=== PATIENT | female | born 2005 | race Caucasian/White ===

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

== ENCOUNTER 2024-10-08 11:58 | Emergency (ER) | payer BC ==
[2024-10-08] MEDS ORDERED: HYDROcodone/Acetaminophen 10/325 mg Tablet ONE (12:41)
[2024-10-08] MEDS ORDERED: Ibuprofen 800 MG TAB ONE (12:52)
== END 2024-10-08 13:03 | disposition home or self-care (01) ==
LOC: ERS 11:58
DX: T24.212A Burn of second degree of left thigh, initial encounter (principal); Z79.899 Other long term (current) drug therapy; X11.1XXA Contact with running hot water, initial encounter
CPT/HCPCS: 99283